=== PATIENT | male | born 1965 | race Caucasian/White ===

== ENCOUNTER 2021-03-01 20:56 | Emergency (ER) | payer OTHER, SELFPAY ==
[2021-03-01] VITALS (9 sets, daily range): BP systolic 163–202; BP diastolic 73–91; PULSE 65–82; RESP 18; TEMP 36.7; O2SAT 94–97; BMI 23.5
--- NOTE | 2021-03-01 21:09 | ECG_ITS ---
APPROVED REPORT Exam: Resting ECG HR:65 bpm ECG Measurements Heart Rate 65 AXES SC 134 P 63 QRSd 92 QRS 77 QT 414 T 135 QTc 430 Conclusion Normal sinus rhythm Possible Left atrial enlargement Left ventricular hypertrophy Anteroseptal infarct, age undetermined Abnormal ECG Electronically signed by : Tigre Mejia, 03/02/2021 17:41:16
--- NOTE | 2021-03-01 21:18 | CT_ITS ---
PROCEDURE INFORMATION: Exam: CT Angiography Neck With Contrast Exam date and time: 03/01/2021 9:18 PM Age: 55 years old Clinical indication: Dizziness and giddiness; Patient HX: Dizziness, sweating, no loc; Additional info: Dizziness, nystagmus present TECHNIQUE: Imaging protocol: Computed tomography angiography of the neck with contrast. 3D rendering (Not supervised by radiologist): MIP and/or 3D reconstructed images were created by the technologist. Radiation optimization: All CT scans at this facility use at least one of these dose optimization techniques: automated exposure control; mA and/or kV adjustment per patient size (includes targeted exams where dose is matched to clinical indication); or iterative reconstruction. Contrast material: ISOVUE 370; Contrast volume: 100 ml; Contrast route: INTRAVENOUS (IV); COMPARISON: CT HEAD/BRAIN WO CON 03/01/2021 10:05 PM FINDINGS: Right common carotid artery: There is calcification, plaquing and irregularity involving the right common carotid artery. Mild stenosis measures less than 50%. Right internal carotid artery: There is calcification and plaquing involving the right ICA greater proximally. Stenosis measures up to 55%. Right external carotid artery: No occlusion or stenosis of the origin. Left common carotid artery: There is calcification and plaquing involving the left common carotid artery. Mild stenosis measures less than 50%. Left internal carotid artery: Multifocal calcification, plaquing and irregularity involving the left ICA. Stenosis measures up to 65%. Left external carotid artery: Moderate to severe stenosis of the proximal left ECA. Right vertebral artery: Right vertebral artery is diminutive. There is irregularity involving the right vertebral artery proximally. There is severe stenosis involving the right vertebral artery V1 segment. Left vertebral artery: Left vertebral artery is dominant. Aorta: Aortic calcification. Soft tissues: Normal. No significant soft tissue swelling. Bones/joints: There are degenerative changes involving the spine. IMPRESSION: 1. 65% stenosis involving the left ICA. 2. Stenosis of the right ICA greater proximally measures up to 55%. 3. Diminutive right vertebral artery demonstrates irregularity proximally with severe V1 segment stenosis. 4. Moderate to severe stenosis at the proximal left ECA. REFERENCES: NASCET CRITERIA. The degree of internal carotid artery stenosis is based on NASCET criteria. Normal is no stenosis. Mild is less than 50% stenosis. Moderate is 50-69% stenosis. Severe is 70% to 99% stenosis. Total occlusion is no detectable patent lumen.
--- NOTE | 2021-03-01 21:18 | CT_ITS ---
PROCEDURE INFORMATION: Exam: CT Angiography Head With Contrast, Arteriography Exam date and time: 03/01/2021 9:18 PM Age: 55 years old Clinical indication: Dizziness and giddiness; Patient HX: Dizziness, sweating, no loc; Additional info: Dizziness, nystagmus present TECHNIQUE: Imaging protocol: Computed tomography angiography of the head with contrast. Exam focused on the arteries. 3D rendering (Not supervised by radiologist): MIP and/or 3D reconstructed images were created by the technologist. Radiation optimization: All CT scans at this facility use at least one of these dose optimization techniques: automated exposure control; mA and/or kV adjustment per patient size (includes targeted exams where dose is matched to clinical indication); or iterative reconstruction. Contrast material: ISOVUE 370; Contrast volume: 100 ml; Contrast route: INTRAVENOUS (IV); COMPARISON: CT HEAD/BRAIN WO CON 03/01/2021 10:05 PM FINDINGS: ANTERIOR CIRCULATION: Right internal carotid artery: Calcification involving the right carotid siphon with [id number] stenosis. Right middle cerebral artery: Unremarkable. No occlusion or significant stenosis. No aneurysm. Right anterior cerebral artery: Unremarkable. No occlusion or significant stenosis. No aneurysm. Left internal carotid artery: Calcification involving the left carotid siphon with [id number] stenosis. Left middle cerebral artery: Unremarkable. No occlusion or significant stenosis. No aneurysm. Left anterior cerebral artery: Unremarkable. No occlusion or significant stenosis. No aneurysm. POSTERIOR CIRCULATION: Right vertebral artery: Unremarkable. No occlusion or significant stenosis. No aneurysm. Left vertebral artery: Left vertebral artery is dominant. Basilar artery: Unremarkable. No occlusion or significant stenosis. No aneurysm. Right posterior cerebral artery: Unremarkable. No occlusion or significant stenosis. No aneurysm. Left posterior cerebral artery: Unremarkable. No occlusion or significant stenosis. No aneurysm. IMPRESSION: 1. No large vessel occlusion. 2. [id number]-[id number] stenosis involving both ICAs.
[2021-03-01 21:33] LABS: Basophils # 0.1 K/mm3 (0-0.2); Eosinophils # 0.3 K/mm3 (0.0-0.4); Eosinophils % 4.9 % (0.1-12.0); Hemoglobin 15.8 g/dL (14.1-18.0); Lymphocytes # 2.9 K/mm3 (0.7-4.5); Lymphocytes % 41.6 % (10-50); Mean Corpuscular HGB Conc 34.4 g/dL (31.8-35.4); Mean Corpuscular Hemoglobin 35.1 pg (27.0-31.2); Mean Corpuscular Volume 101.9 fl (80-94); Mean Platelet Volume 8.4 fl (7.4-10.4); Monocytes # 0.5 K/mm3 (0.1-1.0); Monocytes % 7.2 % (1.7-9.3); Neutrophils # 3.1 K/mm3 (1.8-7.8); Neutrophils % 44.4 % (37.0-80.0); Platelet Count 140 K/mm3 (142-424); Red Blood Count 4.52 M/mm3 (4.60-6.20); Red Cell Distribution Width 13.8 % (11.5-17.5); White Blood Count 6.9 K/mm3 (4.8-10.8)
--- NOTE | 2021-03-01 21:36 | CT_ITS ---
PROCEDURE INFORMATION: Exam: CT Head Without Contrast Exam date and time: 03/01/2021 9:36 PM Age: 55 years old Clinical indication: Patient HX: Dizziness, sweating, no loc; Additional info: Dizziness with vision changes TECHNIQUE: Imaging protocol: Computed tomography of the head without contrast. Radiation optimization: All CT scans at this facility use at least one of these dose optimization techniques: automated exposure control; mA and/or kV adjustment per patient size (includes targeted exams where dose is matched to clinical indication); or iterative reconstruction. COMPARISON: No relevant prior studies available. FINDINGS: Brain: Mild volume loss. No acute intracranial hemorrhage, midline shift or intracranial mass effect. No cerebral edema. Cerebral ventricles: No hydrocephalus. Paranasal sinuses: Mild paranasal sinus disease. Mastoid air cells: Visualized mastoid air cells are well aerated. Bones/joints: Unremarkable. No acute fracture. Soft tissues: Unremarkable. IMPRESSION: No acute intracranial abnormality.
--- NOTE | 2021-03-01 21:36 | [facility].EDDIZZ ---
ED Disposition Clinical Impression: Vertebral basilar insufficiency Transient cerebral ischemia Qualifiers: Transient cerebral ischemia type: unspecified Qualified Code(s): G45.9 - Transient cerebral ischemic attack, unspecified Disposition: Home, Self-Care Condition on Discharge: Good Instructions: Vertigo Additional Instructions: call pcp this am and vascular surg Referrals: Provider,Referral, [Primary Care Provider] - - Critical Care Critical Care Time: No Attestation: On 03/01/21, the high probability of a clinically significant, sudden or life threatening deterioration of the following system(s) required my full and direct attention, intervention and personal management. The time I documented below is in addition to time spent performing reported procedures but includes the following listed in this critical care notation. Medical Decision Making - Medical Records Medical records reviewed: Yes: I reviewed the patient's medical records. - [place] Inquiry Pt receiving controlled substance: No Vital Signs: 03/01/21 20:58 03/01/21 21:03 03/01/21 21:16 Temperature 98.1 F Temperature Source Oral Pulse Rate 74 77 Pulse Rate [Right] 78 Respiratory Rate 18 Blood Pressure 202/89 H 180/80 H Blood Pressure [Right Arm] 163/73 H Blood Pressure Mean [Right Arm] 103 Blood Pressure Source [Right Arm] Automatic Cuff 02 Sat by Pulse Oximetry 96 96 Oxygen Delivery Method Room Air Room Air 03/01/21 21:30 03/01/21 22:00 03/01/21 22:31 Temperature Temperature Source Pulse Rate 82 65 76 Pulse Rate [Right] Respiratory Rate Blood Pressure 163/74 H 184/85 H 200/90 H Blood Pressure [Right Arm] Blood Pressure Mean [Right Arm] Blood Pressure Source [Right Arm] 02 Sat by Pulse Oximetry 96 97 Oxygen Delivery Method Room Air Room Air 03/01/21 23:00 03/01/21 23:11 03/01/21 23:31 Temperature Temperature Source Pulse Rate 73 78 72 Pulse Rate [Right] Respiratory Rate Blood Pressure 198/79 H 183/78 H 202/91 H Blood Pressure [Right Arm] Blood Pressure Mean [Right Arm] Blood Pressure Source [Right Arm] 02 Sat by Pulse Oximetry 95 95 94 L Oxygen Delivery Method 03/02/21 00:00 Temperature Temperature Source Pulse Rate 80 Pulse Rate [Right] Respiratory Rate Blood Pressure 187/76 H Blood Pressure [Right Arm] Blood Pressure Mean [Right Arm] Blood Pressure Source [Right Arm] 02 Sat by Pulse Oximetry 95 Oxygen Delivery Method Room Air - Lab Data Lab results reviewed: Yes: I reviewed the patient's lab results. Lab Results 03/01/21 21:15: WBC 6.9, RBC 4.52 L, Hgb 15.8, Hct 46.0, MCV 101.9 H, MCH 35.1 H, MCHC 34.4, RDW 13.8, Plt Count 140 L, MPV 8.4, Neut % (Auto) 44.4, Lymph % (Auto) 41.6, Emmons % (Auto) 7.2, Eos % (Auto) 4.9, Baso % (Auto) 2.0, Neut # (Auto) 3.1, Lymph # (Auto) 2.9, Emmons # (Auto) 0.5, Eos # (Auto) 0.3, Baso # (Auto) 0.1 03/01/21 21:15: Sodium 139, Potassium 3.5, Chloride 100, Carbon Dioxide 28, Anion Gap 14.5, BUN 4 L, Creatinine 0.80, Estimated Creat Clear 99, Estimated GFR 100, Est GFR ( Amer) 121, Glucose 127 H, Calcium 8.7, Magnesium 2.0, Total Bilirubin 0.6, AST 51, ALT 40, Alkaline Phosphatase 53, Troponin I < 0.01, C-Reactive Protein 0.4, Total Protein 7.3, Albumin 4.6, Globulin 2.7, Albumin/Globulin Ratio 1.7 03/01/21 21:15: ESR 6 03/01/21 21:15: Procalcitonin 0.033 03/01/21 21:15: Plasma/Serum Alcohol 172 H Result diagrams: 03/01/21 21:15 03/01/21 21:15 Orders (Tests/Meds): ED MEDICATIONS Generic Name Dose Route Start Last Admin Trade Name Freq PRN Reason Stop Dose Admin Sodium Chloride 1,000 mls @ 999 mls/hr 03/01/21 21:30 03/01/21 21:48 Sod Chlor 0.9% 1000ml Bag IV 03/01/21 22:30 999 mls/hr .Q1H1M TORRI Administration Sodium Chloride 1,000 mls @ 999 mls/hr 03/01/21 23:15 03/01/21 23:09 Sod Chlor 0.9% 1000ml Bag IV 03/02/21 00:15 999 mls/hr .Q1H1M TORRI Administration Di
[2021-03-01 21:37] LABS: Alanine Aminotransferase 40 U/L (12-78); Albumin Level 4.6 g/dl (3.5-5.0); Albumin/Globulin Ratio 1.7 (1.1-1.8); Alkaline Phosphatase 53 U/L (38-126); Anion Gap 14.5 mEq/L (5-15); Aspartate Amino Transferase 51 U/L (17-59); Bilirubin,Total 0.6 mg/dl (0.2-1.3); Blood Urea Nitrogen 4 mg/dl (9-20); Calcium 8.7 mg/dl (8.4-10.2); Carbon Dioxide 28 mmol/L (22.0-30.0); Chloride 100 mmol/L (98-107); Creatinine Clearance Estimated 99 mL/min (50-200); Estimated Glomerular Filt Rate 100 ml/min (>60); GFR (African American) 121 ML/MIN (>60); Globulin 2.7 g/dL (1.3-3.2); Glucose 127 mg/dl (74-100); Potassium 3.5 mmoL/L (3.5-5.1); Sodium 139 mmol/L (136-145); Total Protein,Serum 7.3 g/dl (6.3-8.2)
--- NOTE | 2021-03-01 21:38 | XR_ITS ---
PROCEDURE INFORMATION: Exam: XR Chest Exam date and time: 03/01/2021 9:38 PM Age: 55 years old Clinical indication: Patient HX: Dizziness, sweating TECHNIQUE: Imaging protocol: XR of the chest. Views: 2 views. COMPARISON: No relevant prior studies available. FINDINGS: Lungs: Bibasilar calcified granulomas. No consolidation. Pleural spaces: Unremarkable. No pleural effusion. No pneumothorax. Heart/Mediastinum: Unremarkable. No cardiomegaly. Vasculature: Aortic calcification. Bones/joints: There are degenerative changes involving the spine. IMPRESSION: No acute cardiopulmonary process.
[2021-03-01 21:53] LABS: C-Reactive Protein 0.4 mg/L (0-4)
[2021-03-01 21:54] LABS: Procalcitonin 0.033 ng/mL (0.0-2.0)
[2021-03-01 22:04] LABS: Troponin I < 0.01 ng/ml (0.00-0.034)
[2021-03-01 22:05] LABS: Erythrocyte Sedimentation Rate 6 mm/hr (0-20)
[2021-03-01 23:19] LABS: Ethyl Alcohol 172 mg/dl (0-10)
[2021-03-02] VITALS: BP 187/76; PULSE 80; O2SAT 95
[2021-03-02 00:46] LABS: Troponin I < 0.01 ng/ml (0.00-0.034)
[2021-03-02 00:50] VITALS: BP 178/80; PULSE 74; RESP 16; TEMP 36.7; O2SAT 95
== END 2021-03-02 01:19 | disposition home or self-care (01) ==
PROVIDERS: Emergency Provider Emergency Medicine
DX: G45.0 Vertebro-basilar artery syndrome (principal); G45.8 Other transient cerebral ischemic attacks and related syndromes
CPT/HCPCS: 70450; 70496; 70498; 71046; 80053; 83735; 84145; 84484; 85025; 85651; 86140; 93005; 96365; 96366; 99283; Q9967